=== PATIENT | female | born 1995 | race Caucasian/White ===

== ENCOUNTER 2016-08-28 20:27 | Emergency (ER) | payer MEDICAID ==
[2016-08-28 20:27] VITALS: BMI 25.0
[2016-08-28 20:46] VITALS: BP 105/71; PULSE 89; RESP 20; TEMP 98.7; O2SAT 100
--- NOTE | 2016-08-28 21:16 | C.PDOC ---
History Of Present Illness 20 y/o female presents to ED with complaint of right knee pain over the past several days. Denies any injury or trauma. She notes pain worsens with movement and walking. Denies weakness, numbness, or rash. Time Seen by Provider: 08/28/16 20:52 Chief Complaint (Nursing): Lower Extremity Problem/Injury History Per: Patient History/Exam Limitations: no limitations Onset/Duration Of Symptoms: Days Current Symptoms Are (Timing): Still Present Recent travel outside of the [place]: No Past Medical History Reviewed: Historical Data, Nursing Documentation, Vital Signs Vital Signs: Last Vital Signs Temp 98.7 F 08/28/16 20:43 Pulse 89 08/28/16 20:43 Resp 20 08/28/16 20:43 BP 105/71 08/28/16 20:43 Pulse Ox 100 08/28/16 22:06 - Medical History PMH: No Chronic Diseases Family History: States: Unknown Family Hx - Social History Hx Alcohol Use: Yes Hx Substance Use: No - Immunization History Hx Tetanus Toxoid Vaccination: No Hx Influenza Vaccination: No Hx Pneumococcal Vaccination: No Review Of Systems Except As Marked, All Systems Reviewed And Found Negative. Constitutional: Negative for: Fever Musculoskeletal: Positive for: Other (Knee Pain, R) Skin: Negative for: Rash Neurological: Negative for: Weakness, Numbness Physical Exam - Physical Exam Appears: Non-toxic, No Acute Distress Skin: Normal Color, Warm, Dry Head: Atraumatic, Normacephalic Eye(s): bilateral: Normal Inspection Extremity: Normal ROM (pain with extension of right knee), Tenderness (minimal right anterior knee), Capillary Refill (< 2 sec. ), No Deformity, Swelling ( minimal right anterior knee) Extremity: Bilateral: Normal Color And Temperature Pulses: Left Dorsalis Pedis: Normal, Right Dorsalis Pedis: Normal Neurological/Psych: Oriented x3, Normal Motor, Normal Sensation Gait: Steady ED Course And Treatment O2 Sat by Pulse Oximetry: 100 (RA) Pulse Ox Interpretation: Normal - Other Rad Right Knee X-Ray X-Ray: Interpreted by Me, Viewed By Me Interpretation: Negative for fx or dislocation. Progress Note: Treated with Tylenol. Right knee x-rays ordered and reviewed, showing no acute bony abnormality. Knee brace applied to right knee by CP, checked by me. On reassessment, patient is resting comfortably, and is in no acute distress. Patient instructed to follow up with clinic/PMD within 1-2 days. Medical Decision Making Medical Decision Making: Patient is currently , but still requesting xray. Knee xray shows soft-tissue swelling, but negative for fracture or dislocation. Knee immobilizer was placed and patient trained in crutch walking. Disposition - Disposition Referrals: Tona Loyola MD [Staff Provider] - Disposition: HOME/ ROUTINE Disposition Time: 22:02 Condition: IMPROVED Additional Instructions: Follow up with the medical doctor within 1-2 days. Return if worsened. Prescriptions: Acetaminophen [Tylenol] 325 mg PO Q6 PRN #30 tab PRN Reason: Pain, Mild (1-3) Instructions: Knee Sprain (ED) - Clinical Impression Clinical Impression: Knee pain, Joint pain - PA / MEDICAL STAFF COORDINATOR / Resident Statement MD/DO has reviewed & agrees with the documentation as recorded. - Scribe Statement The provider has reviewed the documentation as recorded by the Darianibdrea Wood Provider Scribe Attestation: All medical record entries made by the Linwood were at my direction and personally dictated by me. I have reviewed the chart and agree that the record accurately reflects my personal performance of the history, physical exam, medical decision making, and the department course for this patient. I have also personally directed, reviewed, and agree with the discharge instructions and disposition.
--- NOTE | 2016-08-29 11:00 | RAD ---
PROCEDURE: Right Knee Radiographs. HISTORY: knee pain and swelling COMPARISON: None. FINDINGS: BONES: Normal. No fracture. JOINTS: Normal. No osteoarthritis. JOINT EFFUSION: Possible small effusion present OTHER FINDINGS: None. IMPRESSION: No bony destructive lesions. A small retro suprapatellar joint effusion is possible
== END 2016-08-28 22:14 | disposition home or self-care (01) ==
LOC: C.ER 20:27
DX: M25.561 Pain in right knee (principal)

== ENCOUNTER 2017-09-10 06:28 | Day surgery (SDC) | payer MEDICAID ==
[2017-09-05 13:30] VITALS: BMI 27.3
[2017-09-10] MEDS ORDERED: Rocuronium 10 mg/ml (5 ml) ONE (08:50)
[2017-09-10] MEDS ORDERED: Propofol 10 mg/ml Inj (20 ML) ONE (08:50)
[2017-09-10] MEDS ORDERED: Midazolam 2 MG/2 ML VIAL ONE (08:50)
[2017-09-10] MEDS ORDERED: ceFAZolin 1 gm in NS 1 GM/100 ML BAG IVPB ONE ×2 (09:32→09:45)
[2017-09-10] MEDS: Lidocaine/Epinephrine 1% 1:100000 10 ML IJ ONE ×2 (10:22→10:31)
[2017-09-10] MEDS: Bupivacaine HCl 0.25% PF (30 ml) Inj ONE ×4 (10:54→12:04)
[2017-09-10] MEDS ORDERED: Neostigmine Methylsulfate 3mg/3ml Syringe IV ONE (12:15)
[2017-09-10] MEDS ORDERED: Oxycodone/Acetaminophen 5/325 mg Tab PO PRN (12:35)
--- NOTE | 2017-09-10 12:48 | PCM.SURG1 ---
Surgeon's Initial Post Op Note - Surgeon's Notes Surgeon: Dr. Dover Forging Machine Operator: Jayshree Mittal, PGY2 Pre-Operative Diagnosis: ventral hernia Operative Findings: ventral hernia approximately 6cm in length Post-Operative Diagnosis: same Operation Performed: robotic assisted laparoscopic hernia repair with mesh, lysis of adhesions Specimen/Specimens Removed: hernia sac Estimated Blood Loss: EBL {In ML}: 5 Date of Surgery/Procedure: 09/10/17 Time of Surgery/Procedure: 10:30
[2017-09-10] MEDS: HYDROmorphone 0.5 mg/0.5 ml ISec IVP PRN ×2 (12:53→14:09)
[2017-09-10] MEDS ORDERED: Lactated Ringer's 1,000 ML IV ONE (13:00)
[2017-09-10] MEDS ORDERED: Ciprofloxacin 0.3% OPTH SOLN OU ONE (14:15)
--- NOTE | 2017-09-10 16:40 | CP.PCM.PN ---
Subjective - Date & Time of Evaluation Date of Evaluation: 09/10/17 Time of Evaluation: 16:20 - Subjective Subjective: jack winder reported patient complaining of left eye swelling and irritation. Evaluated patient, irrigation with BSS solution. ICE applied. Consulted with TAWNY MUSTAFA, patient had eye goggles and face shield throughout the induction period and intraoperative course. Contacted ophthomologist Dr Bai...reported event..suggestion recieved for Cipro eye drops continue with ice and follow up with Dr Bai in 24 if not improved. ReExamined the patient at 420pm. Swelling decreased, conjunctiva normal without further congestion or redness. Pain minimal and visual acuity normalized. Patient education re follow up with Dr Bai. Objective - Vital Signs/Intake and Output Vital Signs (last 24 hours): Temp Pulse Resp BP Pulse Ox 97.4 F L 90 18 108/71 97 09/10/17 15:15 09/10/17 15:46 09/10/17 15:46 09/10/17 15:46 09/10/17 15:46 Intake and Output: 09/10/17 09/10/17 06:59 18:59 Intake Total 1000 Output Total 150 Balance 850 - Medications Medications: Current Medications Ondansetron HCl (Zofran Inj) 4 mg IVP Q6H PRN PRN Reason: Nausea/Vomiting Oxycodone/Acetaminophen (Percocet 5/325 Mg Tab) 1 tab PO Q4H PRN PRN Reason: Pain, moderate (4-7) Stop: 09/13/17 12:36 Last Admin: 09/10/17 15:46 Dose: 1 tab
[2017-09-10 17:17] VITALS: BP 102/55; PULSE 69; RESP 16; TEMP 98; O2SAT 98
--- NOTE | 2017-09-11 01:35 | OP ---
PROCEDURE DATE: 09/10/2017 PREOPERATIVE DIAGNOSES: 1. Ventral supraumbilical hernia. 2. Possible umbilical hernia. POSTOPERATIVE DIAGNOSES: 1. Supraumbilical ventral hernia. 2. Umbilical hernia. PROCEDURE DONE: 1. Robotic ventral hernia repair with a mesh. 2. Robotic umbilical hernia repair with a mesh. SURGEON: Doyle Dover MD. DIGITAL ACCOUNT DIRECTOR: DARYL Stack SECOND DIGITAL ACCOUNT DIRECTOR: Jayshree Mittal, PGY-2 Resident. TYPE OF ANESTHESIA: General endotracheal tube anesthesia. ESTIMATED BLOOD LOSS: Around 10 mL. DRAINS: None. SPECIMENS TO PATHOLOGY: Hernial sac and content were sent to Pathology from both umbilical hernia as well as ventral hernia site. COMPLICATIONS: None. INTRAOPERATIVE FINDINGS: The patient had approximately 2 cm x 2 cm umbilical hernia and 2 cm x 3 cm x 3 cm large ventral hernia. DESCRIPTION OF PROCEDURE: On intraoperative steps, this 21-year-old female, who was diagnosed with ventral hernia, and the patient was consented for robotic ventral hernia repair with the mesh, possible umbilical hernia repair, brought to the OR, placed supine on the operating table. After induction of the anesthesia, abdomen was prepped and draped in usual sterile fashion. SECOND PROCEDURE: Bilateral laparoscopic TAP block placement. The patient was placed supine on the operating table. After induction of anesthesia, abdomen was prepped and draped in the usual sterile fashion. The left upper quadrant 5 mm incision was made using the Visiport technique. Peritoneal cavity was entered. Pneumo was created. Another two 8 mm ports were placed in the left flank and left upper quadrant, and robot was brought in. Camera arm, as well as arm 1 and arm 2 were docked; and grasper and dissector were introduced, and the hernial sac and content were reduced. The patient also was found to have a small umbilical hernia, and that was also dissected and hernial sac and content were also reduced and sent off the table for pathology at the end of the procedure. Now, the umbilical hernia site was closed with #1 Prolene V-loc sutures, and the supraumbilical ventral hernia was also repaired with #1 Prolene V-loc suture in a 2 layer and a large 9 cm mesh was placed and the mesh was implanted. After proper implantation of the mesh covering both the defect, the bilateral laparoscopic TAP block was given. All the ports were taken out under vision. The robot was undocked before removing the port, and the instrument was taken out. The count of instrument was correct. There were no apparent complications. The patient was extubated in OR, sent to the Postanesthesia Care Unit in stable condition. Doyle Dover MD
== END 2017-09-10 17:10 | disposition home or self-care (01) ==
LOC: C.SDS 06:28
PROVIDERS: ATTEND Surgery Surgical Critical Care
DX: K43.9 Ventral hernia without obstruction or gangrene (principal); K42.9 Umbilical hernia without obstruction or gangrene
CPT/HCPCS: 49652; 88302; J0690; J1100; J1170; J1885; J2001; J2250; J2405; J2704; J2710; J3010; J7120

== ENCOUNTER 2017-09-11 14:34 | Emergency (ER) | payer MEDICAID ==
[2017-09-11 14:35] VITALS: BMI 27.3
[2017-09-11 14:44] VITALS: BP 109/69; PULSE 58; RESP 20; TEMP 97.9; O2SAT 98
== END 2017-09-11 15:20 | disposition left against medical advice (07) ==
LOC: C.ER 14:34
DX: Z02.89 Encounter for other administrative examinations (principal); H92.09 Otalgia, unspecified ear